=== PATIENT | male | born 1960 | race Caucasian/White ===

== ENCOUNTER 2023-02-01 17:49 | Emergency (ER) | payer MEDICAID ==
[~2023-02-01] VITALS: Ht 182.9 cm; Wt 73.2 kg
[2023-02-01 17:59] VITALS: BP 109/77
[2023-02-01] MEDS ORDERED: HYDROcodone/acetaminophen 10/325mg tab PO ONE (18:40)
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
[2023-02-01] MEDS ORDERED: OXYC-145 PO (19:37)
[2023-02-02] MEDS ORDERED: OXYC-150 PO (15:07)
== END 2023-02-01 19:53 | disposition home or self-care (01) ==
LOC: ER 17:50
DX: S09.90XA Unspecified injury of head, initial encounter (principal); X58.XXXA Exposure to other specified factors, initial encounter; Y93.89 Activity, other specified; Y92.89 Other specified places as the place of occurrence of the external cause; Y99.8 Other external cause status
CPT/HCPCS: 70450; 72125; 99284

== ENCOUNTER 2023-09-23 09:59 | Emergency (ER) | payer MEDICAID ==
[~2023-09-23] VITALS: Ht 180.3 cm; Wt 71.5 kg
[~2023-09-23 09:59] MED LIST: OXYC-150 PO
[2023-09-23 10:04] VITALS: BP 125/86; PULSE 128; TEMP 97.8; O2SAT 97
[2023-09-23] MEDS ORDERED: ketorolac trometh inj. 60 MG/2 ML VIAL IM ONE (11:35)
[2023-09-23] MEDS ORDERED: diazepam inj 5 MG/ML inj. IM ONE (11:35)
[2023-09-23] MEDS ORDERED: CYCL-1 PO (11:38)
[2023-09-23] MEDS ORDERED: PRED20TA PO (11:38)
[2023-09-23 11:45] VITALS: RESP 19
== END 2023-09-23 13:00 | disposition home or self-care (01) ==
LOC: ER 09:59
DX: S39.012A Strain of muscle, fascia and tendon of lower back, initial encounter (principal); Z79.899 Other long term (current) drug therapy; X58.XXXA Exposure to other specified factors, initial encounter; Y93.89 Activity, other specified; Y92.89 Other specified places as the place of occurrence of the external cause; Y99.8 Other external cause status
CPT/HCPCS: 96372; 99284; J1885; J3360

== ENCOUNTER 2023-11-08 18:58 | Emergency (ER) | payer MEDICAID ==
[~2023-11-08] VITALS: Ht 182.9 cm; Wt 77.3 kg
[~2023-11-08 18:58] MED LIST changes: +CYCL-1 PO
[2023-11-08 19:07] VITALS: BP 138/83; PULSE 102; RESP 16; TEMP 98.6; O2SAT 97
== END 2023-11-08 21:00 ==
LOC: ER 18:59
DX: S01.411A Laceration without foreign body of right cheek and temporomandibular area, initial encounter (principal); S61.411A Laceration without foreign body of right hand, initial encounter; S29.012A Strain of muscle and tendon of back wall of thorax, initial encounter; S16.1XXA Strain of muscle, fascia and tendon at neck level, initial encounter; V98.8XXA Other specified transport accidents, initial encounter; Y93.89 Activity, other specified; Y92.89 Other specified places as the place of occurrence of the external cause; Y99.8 Other external cause status
CPT/HCPCS: 70450; 72125; 72128; 72131; 99284